=== PATIENT | male | born 1940 | race Caucasian/White ===

== ENCOUNTER 2024-05-30 10:12 | Inpatient (IN) ==
--- NOTE | 2024-05-31 12:54 | History & Physical Report ---
Date of Service May 31, 2024 Assessment & Plan Admission and Anticipated Discharge Date Admission Date: May 31, 2024 History of Present Illness Primary Care Provider: Yolanda Pope DO Allergies Allergy/AdvReac Type Severity Reaction Status Date / Time No Known Allergies Allergy Verified 05/28/24 13:18 Home Medications Medication Instructions Recorded Confirmed Type apixaban 5 mg tablet (Eliquis) 5 mg PO BID 05/01/24 05/31/24 History atorvastatin 10 mg tablet 5 mg PO HS 05/01/24 05/31/24 History metoprolol tartrate 50 mg tablet 50 mg PO QAM 05/01/24 05/31/24 History (Lopressor) multivitamin 1 tab PO DAILY 05/02/24 05/31/24 History Past Med/Surg History Problem List (Updated 05/31/24 @ 16:22 by Lorenzo Au DO) Ascites Hyponatremia Encounter for pre-operative examination Bladder tumor Mixed hearing loss, bilateral Medical History History of COVID-19 01/2023, "no real symptoms," resolved Nausea and vomiting after administration of anesthetic agent only as child when they used ether, no issues with recent procedures Hx of basal cell carcinoma History of Mohs micrographic surgery for skin cancer for BCC, f/u dermatology in [place] Mixed conductive and sensorineural hearing loss, 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 ears and deafness Social History Smoking Status: Never smoker Second Hand Exposure: No; Do You Dip or Chew Tobacco: No; Hx Alcohol Use: No Hx Substance Use: No Preferred Language: Tunisian Communication Ability: Effective Junior Java Developer Required: No Beliefs That Will Affect Care: None Current Living Situation: Spouse Feels Safe at Home: Yes Safety Concerns: Feels Safe At This Time Assistive Devices: Hearing Aid - Left Results & Data Results & Data Vital Signs (Past 12 Hours) Vital Signs Temp Pulse Pulse Resp BP Pulse Ox O2 Del Method 05/31/24 12:16 Room Air 05/31/24 12:14 98.2 F 76 12 176/97 H 95 Room Air 05/31/24 12:14 72 Code Status & VTE Plan VTE Prophylaxis Plan VTE Prophylaxis will be ordered: Yes PG Care Time/CCT Total # of Minutes Spent Total Time Spent with Patient: Total time spent is greater than 50% in coordination of care (as documented) at patient's floor/unit and/or counseling patient: Coding Level of Care Code 25596 INT INP/OBS CARE 375MIN
[2024-05-31 12:55] LABS: BUN Creatinine Ratio 8.8 (10-20); Calcium 7.7 mg/dl (8.6-10.3); Creatinine Clr Calc Pharmacy 82.5 ml/min; Potassium 4.3 mmol/L (3.5-5.1)
[2024-05-31] MEDS ORDERED: ACETAMINOPHEN 325 MG TAB PO PRN (12:56)
[2024-05-31] MEDS ORDERED: MAGNESIUM HYDROXIDE SUSP 30 ML UDC PO PRN (12:56)
[2024-05-31] MEDS ORDERED: POLYETHYLENE (MIRALAX) 17 GM PACK PO PRN (12:56)
[2024-05-31] MEDS ORDERED: ALUMINUM/MAGNESIUM SUSP 30 ML UDC PO PRN (12:56)
--- NOTE | 2024-05-31 16:14 | History & Physical Report ---
Date of Service May 31, 2024 Assessment & Plan (1) Hyponatremia: (2) Ascites: (3) History of atrial fibrillation: (4) Bladder tumor: Plan hyponatremiaetiology not entirely clear. Fortunately does not at all appear consistent with volume overload/CHF, he does have a mild degree of ascites noted on the CT abdomen pelvis, but no clear cause for this. does have mild baseline low Na on preop labs - ?some degree of reset osmostat - but acutely - ?SiADH related to all he's been through recently and bouts of urinary retention? timing raises question of association with afulzosin but not clear that this is the case. will hold for now. given that he is rising some (109 -> 115 this AM - now 112) will follow off meds/draining urine/no distress and follow w PO intake. if not rising then can consider additional salt load/additional hypertonic saline. 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 has no urinary symptoms, UA with leukocyte esterase but no nitrates at outside facilitynot clear he really needs antibiotic coveragehe has been given vancomycin at [facility], and therefore should be covered until tomorrow if coverage truly is needed, depending on the culture that they sent. I have reached out to urology, however, given that his procedure was almost a month ago I am not sure how long 1 needs to treat asymptomatic bacteriuria in the face of a mucosal urologic procedure, given that he certainly would not require treatment given his lack of symptoms/signs by more "conventional medical standards" atrial fibrillationrate controlled, anticoagulated DVT prophylaxisanticoagulated for his A-fib follow on PCUshe was transferred as an ICU patient, but given how neurologically sound he is, will have him on PCU; serial basic metabolic panels with adjustment in plan depending on the progress of his sodium. Working on determining the etiology depending on the progress of his sodium correction and how the whole story unfolds. Discussed with patient and family the anticipation that it will take at least a few days given the profoundly low sodium levels and the need for slow correction. Gave patient and family a primer on delirium in case this were to happen given his age and comorbidities. Admission and Anticipated Discharge Date Admission Date: May 31, 2024 History of Present Illness Chief Complaint: Acting confused Primary Care Provider: Yolanda Pope DO patient is a very pleasant 83-year-old male who presented to [facility] (close to home) yesterday feeling weak and shaky, acting a bit confused according to his family and having some nausea and vomitingper the ER notes he apparently had chest discomfort starting the night before describing as a heartburn intermittent has not had in the past also reports body shaking vomiting once during the night as well as some left hip and groin pain and was currently being treated for MRSA in his urine. He had no fever. Here he notes that he is feeling much better, the shakiness is gone, his mental status is much more clear although his family does note that he still a little bit easily confused. He absolutely denies any dysuria or urinary symptoms whatsoeverhe had a Leiva for quite a while and it was removed and he was voiding wellright now he has a Leiva back in and is anxious to have it removed again. No fevers chills or sweats. The nausea and vomiting seems to have resolved. He notes that up until basically Monday night or morning he was feeling okay. He had a transurethral resection of the bladder tumor done here on 05/07 and had had some issues with hematuria and urinary retention for a while thereafterwas following actively with urologynotes that he was in the ER probably 23 times over the week prior due to urinary retention issues but these had resolved and his Leiva was removed just a few days ago. Other than the nausea vomiting and poor p.o. intake over about 36 hours prior to admission, maybe not even, he denied any change in his p.o. intake/etc. He did note just being started on a few new medicationsmost notably alfuozin which he had started about a day before symptoms started. He was initially started on normal saline at [facility], they followed his sodium levels, were waiting for an ICU bed, and transferred him here. On review of records there his initial vitals on arrival were temp of 36 7 heart rate 66 respiratory rate 18 blood pressure 158/53 pulse ox 95% there he carried a diagnosis of hyponatremia and urinary tract infection, he was given saline and Bactrim, as well as hypertonic saline and vancomycin his initial labs showed a sodium of 109 and a sodium this morning of 115on arrival his sodium is 112 in between at 1:30 in the morning his sodium was 110 he had a high-sensitivity troponin of 15 (with a reference range of less than 79 and a follow-up of 16 a lactate of 1.0, TSH of 2 point2.590, CBC with a white count of 4.71, hemoglobin 10.0, platelets 220. Urinalysis was yellow cloudy trace ketones specific gravity 1.017 large amount of blood protein of 30 mg per deciliter nitrate negative large amount of leukocyte esterase urine sodium of 98 CT chest was done showing mild subsegmental atelectasis in both lower lobes, right middle lobe and lingula, 3 mm right middle lobe nodule, no pleural effusion or pneumothorax, no sign of pulmonary fibrosis or other diffuse interstitial process, no mediastinal air or axillary adenopathy, no endobronchial lesion, thoracic aorta unremarkable with no signs of aneurysm or dissection no pericardial effusion, old healed right rib fractures no focal osseous lesion; radiology recommended 6-month CT to follow-up on the pulmonary nodule. CT abdomen pelvis showed no hydronephrosis or perinephric stranding and no renal mass, small hiatal hernia no sign of bowel obstruction no free air minimal amount of ascites, no bladder mass lesionwith impression of new small amount of ascites some fluid extending into a small right inguinal hernia, moderate size left inguinal hernia containing only fat, unchanged, diverticulosis without diverticulitis, small epigastric hernia containing only fat increase in size, and constipation. EKG was sinus rhythm with some baseline artifact but no overt ischemic changes Allergies Allergy/AdvReac Type Severity Reaction Status Date / Time No Known Allergies Allergy Verified 05/28/24 13:18 Home Medications Medication Instructions Recorded Confirmed Type apixaban 5 mg tablet (Eliquis) 5 mg PO BID 05/01/24 05/31/24 History atorvastatin 10 mg tablet 5 mg PO HS 05/01/24 05/31/24 History metoprolol tartrate 50 mg tablet 50 mg PO QAM 05/01/24 05/31/24 History (Lopressor) multivitamin 1 tab PO DAILY 05/02/24 05/31/24 History Past Med/Surg History Problem List (Updated 05/31/24 @ 16:22 by Lorenzo Au DO) Ascites Hyponatremia Encounter for pre-operative examination Bladder tumor Mixed hearing loss, bilateral Medical History History of COVID-19 01/2023, "no real symptoms," resolved Nausea and vomiting after administration of anesthetic agent only as child when they used ether, no issues with recent procedures Hx of basal cell carcinoma History of Mohs micrographic surgery for skin cancer for BCC, f/u dermatology in [place], [place] Mixed conductive and sensorineural hearing loss, 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 ears and deafness Social History Smoking Status: Never smoker Second Hand Exposure: No; Do You Dip or Chew Tobacco: No; Hx Alcohol Use: No Hx Substance Use: No Preferred Language: Indonesian Communication Ability: Effective Financial Auditor Required: No Beliefs That Will Affect Care: None Current Living Situation: Spouse Feels Safe at Home: Yes Safety Concerns: Feels Safe At This Time Assistive Devices: Hearing Aid - Left Review of Systems Review of Systems: All systems reviewed & are unremarkable except as noted in HPI & below Physical Exam Physical Exam: General He is awake and alert oriented pleasant does seem to be a little bit easily confused versus just hard of hearing and anxious to provide answers. No acute distress. 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 cardio is regular without rubs murmurs or gallops, lungs are clear to auscultation bilaterally no rales rhonchi or wheezes good effort. Abdomen is soft may be mild distention but nontender no guarding no rebound no masses organomegaly. Extremities are without sinus clubbing or edema no calf tend erness. Skin shows no rashes no pallor or icterus. Neuro shows cranial nerves II through XII grossly intact gross motor and sensory intact. Mental status shows fair recent and remote recall mildly anxious mood and affect. Results & Data Results & Data Vital Signs (Past 12 Hours) Vital Signs Temp Pulse Pulse Resp BP Pulse Ox O2 Del Method 05/31/24 15:55 97.7 F 65 20 178/77 H 95 Room Air 05/31/24 15:37 98.1 F 63 16 150/90 H 96 Room Air 05/31/24 12:16 Room Air 05/31/24 12:14 98.2 F 76 12 176/97 H 95 Room Air 05/31/24 12:14 72 Code Status & VTE Plan VTE Prophylaxis Plan VTE Prophylaxis will be ordered: Yes PG Care Time/CCT Total # of Minutes Spent Total Time Spent with Patient: Total time spent is greater than 50% in coordination of care (as documented) at patient's floor/unit and/or counseling patient: Coding Level of Care Code 39833 INT INP/OBS CARE 3/75MIN Diagnoses Hyponatremia E87.1 Ascites R18.8 History of atrial fibrillation Z86.79 Bladder tumor D49.4
[2024-05-31 17:28] LABS: BUN Creatinine Ratio 8.6 (10-20); Calcium 7.8 mg/dl (8.6-10.3); Creatinine Clr Calc Pharmacy 69.3 ml/min; Potassium 4.3 mmol/L (3.5-5.1)
[2024-05-31] MEDS ORDERED: STAT IV/IM STA (17:37)
[2024-05-31] MEDS: SODIUM CHLORIDE 3 % 100 ML IV ONE (18:21)
[2024-05-31] MEDS: APIXABAN 5 MG TABLET PO SCH (21:05)
[2024-05-31] MEDS: ATORVASTATIN 10 MG TAB PO SCH (21:05)
[2024-05-31 21:30] LABS: Calcium 7.9 mg/dl (8.6-10.3); Creatinine Clr Calc Pharmacy 74.8 ml/min; Potassium 4.4 mmol/L (3.5-5.1)
[2024-05-31 23:01] LABS: Appearance Urine Clear (Clear); Bacteria Urine Automated None Seen (None Seen); Bilirubin Urine Negative (Negative); Blood Urine 1+ (Negative); Cast Urine Automated 0-2 /lpf (0-2); Color Urine Yellow; Epithelial Cell Urine Auto 0-2 /hpf (0-2); Glucose Urine UA Negative (Negative); Ketones Urine Negative (Negative); Leukocyte Esterase Urine 1+ (Negative); Nitrite Urine Negative (Negative); Protein Urine Negative (Negative); RBC Urine Automated 0-2 /hpf (0-2); Specific Gravity Urine 1.005 (1.000-1.030); Urobilinogen Urine Negative (Negative); pH Urine 6.5 (4.5-7.5)
[2024-06-01 01:56] LABS: BUN Creatinine Ratio 12.2 (10-20); Creatinine Clr Calc Pharmacy 75.9 ml/min; Potassium 4.1 mmol/L (3.5-5.1)
[2024-06-01 06:15] LABS: BUN Creatinine Ratio 11.8 (10-20); Calcium 8.5 mg/dl (8.6-10.3); Creatinine Clr Calc Pharmacy 79.5 ml/min; Potassium 4.2 mmol/L (3.5-5.1)
--- NOTE | 2024-06-01 06:25 | Communication Note ---
Date of Service: June 01, 2024 Hyponatremia- Sodium 123 at 0531 from 119. Free water deficit 1.2L Patient started on D5 500 ml bolus and DDAVP clamp 2mcg IV one dose for high risk of ove rcorrection. Will repeat NA after Bolus and desmopressin. Continue BMP Q4H
[2024-06-01] MEDS: DEXTROSE 5% 500 ML IV SCH (06:46)
[2024-06-01] MEDS: DESMOPRESSIN ACETATE 2 MCG in SODIUM CHLORIDE 0.9% 50 ML IV ONE (06:50)
--- NOTE | 2024-06-01 07:50 | Hospitalist Progress Note ---
Date of Service June 01, 2024 Assessment & Plan (1) Hyponatremia: (2) Ascites: (3) History of atrial fibrillation: (4) Bladder tumor: Plan 83 yo M with PMHx of HTN, HLD, AFib on apixaban, recent diagnosis of bladder tumor s/p transurethral resection of bladder tumor (05/07/24) presented to [facility] as direct admit from [facility] for management of hyponatremia. He initially presented for the evaluation of weakness, shakiness, and confusion, along with nausea / vomiting. Per [facility] ER notes, his initial sodium was 109 (05/29/24). He was given saline, hypertonic saline, and vancomycin. He is on bactrim as outpatient. His initial sodium trended 109 > 115 > 112 > 110. #Hyponatremia - pt not volume overloaded, TSH: 2.59 - suspect SIADH - this morning 123, subsequently pt received D5 500 cc bolus and DDAVP, now trending down to 120. - trend sodium at this time - will request nephrology to assist in further management #Recent TURBT - pt was noted to have MRSA in his urine 05/24/24 and was started on Bactrim, which he started taking on 05/25/24 and stopped on 05/28/24. When he went to ER the following day, he was placed on Vancomycin, essentially completing 5 day course. Will hold further antibiotics - murphy was initially removed by urology on 05/28/24, but was replaced on 05/29/[address] [facility] - will remove today and attempt voiding trial. #Generalized weakness - suspect due to hyponatremia - will need PT / OT eval #HTN #AFib - rate controlled - cont apixaban and metoprolol #HLD - atorvastatin DVT ppx: already on apixaban Pulmonary nodule - noted on CT chest from [facility] - follow up CT in 6 months (11/2024) 06/01/24: pt's at bedside Admission and Anticipated Discharge Date Admission Date: May 31, 2024 Results & Data Results & Data Vital Signs (Past 12 Hours) Vital Signs Temp Pulse Pulse Resp BP Pulse Ox O2 Del Method 06/01/24 03:24 36.6 C 73 18 150/96 H 95 Room Air 06/01/24 00:00 64 05/31/24 23:45 36.7 C 63 18 137/66 96 Room Air PG Care Time/CCT Total # of Minutes Spent Total Time Spent with Patient: Total time spent is greater than 50% in coordination of care (as documented) at patient's floor/unit and/or counseling patient: Coding Level of Care Code 59519 SUB INP/OBS CARE 2/35MIN Diagnoses Hyponatremia E87.1 Ascites R18.8 History of atrial fibrillation Z86.79 Bladder tumor D49.4
[2024-06-01] MEDS: METOPROLOL TARTRATE 50 MG TAB PO SCH (09:06)
[2024-06-01] MEDS: MULTIVITAMIN TAB PO SCH (09:06)
[2024-06-01 09:38] LABS: BUN Creatinine Ratio 11.1 (10-20); Calcium 8.3 mg/dl (8.6-10.3); Creatinine Clr Calc Pharmacy 75.1 ml/min
[2024-06-01 11:52] LABS: BUN Creatinine Ratio 13.6 (10-20); Calcium 8.1 mg/dl (8.6-10.3); Creatinine Clr Calc Pharmacy 81.9 ml/min; Potassium 4.2 mmol/L (3.5-5.1)
--- NOTE | 2024-06-01 12:41 | Nephrology Consultation ---
Date of Consultation June 01, 2024 Assessment & Plan (1) Hyponatremia: (2) Bladder tumor: (3) HTN (hypertension): Plan 83-year-old gentleman with past medical history of bladder tumor resection, A- fib on anticoagulation, recent mild hyponatremia, admitted to the hospital with acute hyponatremia, serum sodium initially was 112, received hypertonic saline and sodium rapidly improved to 123 this morning. Received DDAVP earlier this morning and repeat serum sodium was 120. Urine osmolality was 121 and urine sodium 31. No history of hypothyroidism or adrenal insufficiency. Recent diagnosis of bladder tumor s/p resection but pathology was negative for malignancy. --Continue to monitor serum sodium every 6 hours --Fluid restriction to less than 15 mL mL per hour --U osm in am --discontinue murphy catheter, monitor for voiding --physical therapy as able --considering new ascites, will check liver function with am lab --If blood pressure remain elevated, will consider adding low-dose loop diuretic but hold for now considering some lightheadedness earlier Thank you for allowing me to participate in your patient's care. It was a pleasure to see Mr. Wilburn History of Present Illness Reason for Consultation: Hyponatremia Attending Physician: Ольга Morris MD History of Present Illness Mr. Miko Wilburn is a 83-year-old male with past medical history of bladder tumor resection, A-fib on anticoagulation, recent mild hyponatremia, admitted to the hospital with acute hyponatremia. Nephrology consult was requested for management of acute hyponatremia. EMR records were reviewed in detail during patient's visit. was at bedside. Miko presented to ER on 05/31/24 with feeling of weakness, some shaking and family concern for confusion. He denied any fever, chills, dysuria or hematuria. Had 1 episode of of nausea and vomiting 2 days ago which seem to have resolved and has been having decent p.o. intake. He has been drinking more fluid due to recent bladder surgery and hematuria. Lab on admission was notable for acute hyponatremia, serum sodium was 112. Recent lab in early April 2024 prior to bladder tumor resection showed mild hyponatremia with serum sodium 127 which eventually slightly improved. Initially he received 3% saline but overnight serum sodium corrected rapidly to 123 early this morning. He was given a dose of DDAVP and repeat sodium later in the morning was down to 120. Urine osmolality yesterday was 121 and urine sodium 31. TSH was 2.5. Hemoglobin 10.0, platelet 220 and WBC 4.7. Urinalysis showed low-grade proteinuria and microscopic hematuria. CT chest otherwise unremarkable. CT A/P at outside facility was unremarkable except mild ascites, no other abnormalities. Has normal kidney function, baseline creatinine 0.8-0.9 mg/dl. Blood pressure was stable and otherwise vital signs were normal. Never smoker. Recent diagnosis of bladder tumor s/p TURBT on 05/07/2024 but pathology showed no cancer. He had Murphy catheter and had gross hematuria now catheter was removed and hematuria resolved as well. Recently he was started on alfuozin. Previously was on apixaban and metoprolol for A-fib, apixaban currently on hold. Last serum sodium was 120. He reports otherwise feeling well but noticed some lightheadedness this morning walking to and from commode but feeling well now. Blood pressure has been variable but generally high. Allergies Allergy/AdvReac Type Severity Reaction Status Date / Time No Known Allergies Allergy Verified 05/28/24 13:18 Home Medications Medication Instructions Recorded Confirmed Type apixaban 5 mg tablet (Eliquis) 5 mg PO BID 05/01/24 05/31/24 History atorvastatin 10 mg tablet 5 mg PO HS 05/01/24 05/31/24 History metoprolol tartrate 50 mg tablet 50 mg PO QAM 05/01/24 05/31/24 History (Lopressor) multivitamin 1 tab PO DAILY 05/02/24 05/31/24 History Patient History Medical History History of COVID-19 01/2023, "no real symptoms," resolved Nausea and vomiting after administration of anesthetic agent only as child when they used ether, no issues with recent procedures Hx of basal cell carcinoma History of Mohs micrographic surgery for skin cancer for BCC, f/[place] dermatology in [place] Mixed conductive and sensorineural hearing loss, 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 ears and deafness Social History Smoking Status: Never smoker Second Hand Exposure: No; Do You Dip or Chew Tobacco: No; Hx Alcohol Use: No Hx Substance Use: No Preferred Language: Upper Sorbian Communication Ability: Effective Soloist Dancer Required: No Beliefs That Will Affect Care: None Current Living Situation: Spouse Feels Safe at Home: Yes Safety Concerns: Feels Safe At This Time Assistive Devices: Hearing Aid - Left Review of Systems Review of Systems: All systems reviewed & are unremarkable except as noted in HPI & below Physical Exam Constitutional: WD/WN, vitals as above no acute distress Eyes: + anicteric sclerae Neck: normal visual inspection Respiratory: no respiratory distress and no cough Auscultation: lungs clear to auscultation bilaterally Cardiovascular: Rate/Rhythm: regular rate and regular rhythm Heart Sounds: normal S1 and normal S2 Extremities: no edema Gastrointestinal (Abdomen): Inspection/Auscultation: abdomen normal to inspection Percussion/Palpation: abdomen soft; abdomen nontender Musculoskeletal: Extremities: extremities normal to inspection Neurologic: no focal motor deficits and not confused Psychiatric: Orientation: alert and oriented x 3 Affect: euthymic affect Results & Data Vital Signs (Past 12 Hours) Vital Signs Temp Pulse Pulse Resp BP Pulse Ox O2 Del Method 06/01/24 11:36 36.7 C 65 17 155/69 H 95 Room Air 06/01/24 08:17 36.7 C 65 18 169/64 H 97 Room Air 06/01/24 08:00 73 06/01/24 03:24 36.6 C 73 18 150/96 H 95 Room Air PG Care Time/CCT Total # of Minutes Spent Total Time Spent with Patient: Total time spent is greater than 50% in coordination of care (as documented) at patient's floor/unit and/or counseling patient: Coding Level of Care Code 42513 INT INP/OBS CARE 3/75MIN Diagnoses Hyponatremia E87.1 Bladder tumor D49.4 HTN (hypertension) I10
[2024-06-01 13:44] LABS: Albumin Level 3.5 gm/dl (3.4-5.0); BUN Creatinine Ratio 15.2 (10-20); Calcium 8.3 mg/dl (8.6-10.3); Creatinine Clr Calc Pharmacy 81.9 ml/min; Phosphorus 2.5 mg/dl (2.5-4.9); Potassium 4.1 mmol/L (3.5-5.1)
[2024-06-01 13:45] LABS: BUN Creatinine Ratio 14.5 (10-20); Calcium 8.3 mg/dl (8.6-10.3); Creatinine Clr Calc Pharmacy 78.4 ml/min; Potassium 4.2 mmol/L (3.5-5.1)
[2024-06-01 18:16] LABS: BUN Creatinine Ratio 14.6 (10-20); Calcium 8.3 mg/dl (8.6-10.3); Creatinine Clr Calc Pharmacy 65.9 ml/min; Potassium 4.6 mmol/L (3.5-5.1)
[2024-06-01] MEDS: SODIUM CHLORIDE 1 GM TABLET PO SCH (20:33)
[2024-06-01] MEDS ORDERED: SODIUM CHLORIDE 1 GM TABLET PO SCH (21:00)
[2024-06-01 22:01] LABS: BUN Creatinine Ratio 15.9 (10-20); Calcium 8.1 mg/dl (8.6-10.3); Creatinine Clr Calc Pharmacy 65.9 ml/min; Potassium 4.1 mmol/L (3.5-5.1)
[2024-06-02 01:29] LABS: BUN Creatinine Ratio 18.4 (10-20); Calcium 7.9 mg/dl (8.6-10.3); Creatinine Clr Calc Pharmacy 71.1 ml/min
[2024-06-02 06:22] LABS: Hematocrit (blood only) 28.4 % (42.0-52.0); Hemoglobin 10.3 g/dl (14.0-18.0); Mean Corpuscular Hemoglobin 31.9 pg (25.0-34.0); Mean Corpuscular Hgb Conc 36.3 g/dL (32.0-36.0); Mean Corpuscular Volume 87.9 fL (80.0-100.0); Mean Platelet Volume 8.3 fL (9.4-12.4); Platelet Count 255 K/uL (130-400); RDW Coefficient of Variation 11.2 % (11.5-14.5); RDW Standard Deviation 36.2 fL (36.4-46.3); Red Blood Count 3.23 M/uL (4.70-6.10); White Blood Count 6.93 K/ul (4.8-10.8)
[2024-06-02 06:30] LABS: Albumin Globulin Ratio 1.5 (0.9-2); Albumin Level 3.3 gm/dl (3.4-5.0); BUN Creatinine Ratio 17.5 (10-20); Bilirubin,Total 0.4 mg/dl (0.2-1.0); Calcium 8.1 mg/dl (8.6-10.3); Creatinine Clr Calc Pharmacy 86.6 ml/min; Globulin 2.2 gm/dl (2.5-4.0); Magnesium 1.6 mg/dl (1.7-2.4); Phosphorus 2.5 mg/dl (2.5-4.9); Potassium 4.1 mmol/L (3.5-5.1); Total Protein 5.5 gm/dl (6.0-8.3)
--- NOTE | 2024-06-02 07:33 | Hospitalist Progress Note ---
Date of Service June 02, 2024 Assessment & Plan (1) Hyponatremia: (2) Ascites: (3) History of atrial fibrillation: (4) Bladder tumor: Plan 83 yo M with PMHx of HTN, HLD, AFib on apixaban, recent diagnosis of bladder tumor s/p transurethral resection of bladder tumor (05/07/24) presented to [facility] as direct admit from [facility] for management of hyponatremia. He initially presented for the evaluation of weakness, shakiness, and confusion, along with nausea / vomiting. Per [facility] ER notes, his initial sodium was 109 (05/29/24). He was given saline, hypertonic saline, and vancomycin. He is on bactrim as outpatient. His initial sodium trended 109 > 115 > 112 > 110. #Hyponatremia - suspect SIADH - pt not volume overloaded (though pt did have some mild ascites on CT abd), TSH: 2.59 - pt has received saline / hypertonic saline (OSH), DDAVP / D5 (here due to over correction) - currently on 1500ml fluid restriction - nephrology on board, per recs initiated NaCl 1g PO BID, added furosemide 20mg po daily - Na this AM 121, trend q6h #Recent TURBT - path (05/07/24): polypoid cystitis, acutely inflamed cystitis glandularis, neg for malignancy - pt was noted to have MRSA in his urine 05/24/24 and was started on Bactrim, which he started taking on 05/25/24 and stopped on 05/28/24. When he went to ER the following day, he was placed on Vancomycin, essentially completing 5 day course. Will hold further antibiotics (urology made aware) - murphy was initially removed by urology on 05/28/24, but was replaced on 05/29/24 in the ED at OSH, removed on 06/01/24 #Generalized weakness - gradually improving - suspect due to hyponatremia - PT / OT recs return home #Ascites - LFTs normal - requested records from OSH - pt is not having any abdominal discomfort, repeat imaging in about 1 - 2 week as outpatient #HTN #AFib - rate controlled - cont apixaban and metoprolol #HLD - atorvastatin DVT ppx: already on apixaban Pulmonary nodule - noted on CT chest from [facility] - follow up CT in 6 months (11/2024) 06/01/24: pt's at bedside 06/02/24: pt's at bedside Admission and Anticipated Discharge Date Admission Date: May 31, 2024 Subjective No acute events overnight Murphy removed yesterday Currently complaining of some constipation Review of Systems Review of Systems: Comprehensive ROS neg Physical Exam Physical Exam: Gen: elderly gentleman, sitting in bedside chair HEENT: NC/AT, anicteric, cochlear implants in place Lungs: CTAB CVS: s1s2 nl, RRR Abd: soft, nl bowel sounds : no murphy Ext: no edema Neuro: awake and alert, communicating appropriately Results & Data Results & Data Vital Signs (Past 12 Hours) Vital Signs Temp Pulse Pulse Resp BP Pulse Ox O2 Del Method 06/02/24 07:13 59 L 06/02/24 03:37 36.6 C 64 16 160/73 H 96 Room Air 06/01/24 23:17 36.5 C 97 H 17 127/62 98 Room Air 06/01/24 22:17 61 06/01/24 19:51 36.7 C 62 19 172/82 H 97 Room Air PG Care Time/CCT Total # of Minutes Spent Total Time Spent with Patient: Total time spent is greater than 50% in coordination of care (as documented) at patient's floor/unit and/or counseling patient: Coding Level of Care Code 59835 SUB INP/OBS CARE 2/35MIN Diagnoses Hyponatremia E87.1 Ascites R18.8 History of atrial fibrillation Z86.79 Bladder tumor D49.4
[2024-06-02] MEDS: FUROSEMIDE 20 MG TAB PO SCH (10:54)
--- NOTE | 2024-06-02 11:07 | Nephrology Progress Note ---
Date of Service June 02, 2024 Assessment & Plan (1) Hyponatremia: (2) Bladder tumor: (3) HTN (hypertension): Plan 83-year-old gentleman with past medical history of bladder tumor resection, A- fib on anticoagulation, recent mild hyponatremia, admitted to the hospital with acute hyponatremia, serum sodium initially was 112, received hypertonic saline and sodium rapidly improved to 123 this morning. Received DDAVP earlier this morning and repeat serum sodium was 120. Urine osmolality was 121 and urine sodium 31. No history of hypothyroidism or adrenal insufficiency. Recent diagnosis of bladder tumor s/p resection but pathology was negative for malignancy. Outside hospital CT abdomen pelvis with contrast done on 05/30/2024 was unremarkable except there is a minimal amount of ascites fluid, no liver pathology or pancreatic pathology or intra-abdominal lymphadenopathy. History of gallbladder resection before. Kidneys were otherwise unremarkable. LFTs are unremarkable this morning. --Start on Lasix 20 mg daily, continue sodium chloride 1 g twice a day, continue to monitor serum sodium every 6 hours --Fluid restriction to less than 1500 mL per/d --physical therapy as able, consider short-term rehab on discharge Admission and Anticipated Discharge Date Admission Date: May 31, 2024 Thomas Crouch was seen and evaluated this morning with his at bedside. His main concern is still feeling quite wobbly and unstable when he works, yesterday he worked with physical therapy and felt unstable on his feet but no dizziness or lightheadedness. Blood pressure remain elevated. Sodium dropped again to 119 yesterday afternoon but now slowly increasing, 121 this morning. Urine osmolality yesterday above 500 possibly some effect from the DDAVP he received yesterday. Other electrolyte acceptable. Drop in hemoglobin noted. Has been voiding normally after Leiva catheter removed yesterday, no gross hematuria. Review of Systems Review of Systems: Detailed review of system was done and pertinent positives and negatives are mentioned above. Physical Exam Constitutional: WD/WN, vitals as above no acute distress Eyes: + anicteric sclerae Respiratory: no respiratory distress and no cough Auscultation: lungs clear to auscultation bilaterally Gastrointestinal (Abdomen): Inspection/Auscultation: abdomen normal to inspection Percussion/Palpation: abdomen soft; abdomen nontender Musculoskeletal: Extremities: extremities normal to inspection Neurologic: no focal motor deficits and not confused Psychiatric: Orientation: alert and oriented x 3 Affect: euthymic affect Results & Data Vital Signs (Past 12 Hours) Vital Signs Temp Pulse Pulse Resp BP Pulse Ox O2 Del Method 06/02/24 08:14 36.7 C 65 18 169/78 H 95 Room Air 06/02/24 07:13 59 L 06/02/24 03:37 36.6 C 64 16 160/73 H 96 Room Air 06/01/24 23:17 36.5 C 97 H 17 127/62 98 Room Air PG Care Time/CCT Total # of Minutes Spent Total Time Spent with Patient: Total time spent is greater than 50% in coordination of care (as documented) at patient's floor/unit and/or counseling patient: Coding Level of Care Code 59641 SUB INP/OBS CARE 2/35MIN Diagnoses Hyponatremia E87.1 Bladder tumor D49.4 HTN (hypertension) I10
[2024-06-02 13:32] LABS: BUN Creatinine Ratio 16.4 (10-20); Calcium 8.4 mg/dl (8.6-10.3); Creatinine Clr Calc Pharmacy 81.4 ml/min; Potassium 3.9 mmol/L (3.5-5.1)
[2024-06-02] MEDS: DOCUSATE SODIUM/SENNA 50/8.6MG TAB PO SCH (15:22)
[2024-06-02 18:30] LABS: BUN Creatinine Ratio 13.9 (10-20); Calcium 8.6 mg/dl (8.6-10.3); Potassium 4.1 mmol/L (3.5-5.1)
[2024-06-02] MEDS: MAGNESIUM OXIDE 400 MG TAB PO SCH (20:16)
[2024-06-03 01:00] LABS: Calcium 8.2 mg/dl (8.6-10.3); Potassium 3.7 mmol/L (3.5-5.1)
[2024-06-03 06:21] LABS: Hematocrit (blood only) 30.3 % (42.0-52.0); Mean Corpuscular Hemoglobin 31.7 pg (25.0-34.0); Mean Corpuscular Hgb Conc 36.3 g/dL (32.0-36.0); Mean Corpuscular Volume 87.3 fL (80.0-100.0); Platelet Count 275 K/uL (130-400); RDW Coefficient of Variation 11.5 % (11.5-14.5); RDW Standard Deviation 36.8 fL (36.4-46.3); Red Blood Count 3.47 M/uL (4.70-6.10); White Blood Count 6.72 K/ul (4.8-10.8)
[2024-06-03 06:36] LABS: BUN Creatinine Ratio 19.7 (10-20); Calcium 8.5 mg/dl (8.6-10.3); Creatinine Clr Calc Pharmacy 82.6 ml/min; Magnesium 1.7 mg/dl (1.7-2.4); Phosphorus 3.1 mg/dl (2.5-4.9); Potassium 3.8 mmol/L (3.5-5.1)
[2024-06-03] MEDS: ONDANSETRON INJ 2 MG/ML 2 ML VIAL IV PRN (09:00)
--- NOTE | 2024-06-03 09:39 | Nephrology Progress Note ---
Date of Service June 03, 2024 Assessment & Plan (1) Hyponatremia: Plan: Chronic. No current symptoms. Sodium is improving at acceptable rate following DDAVP provided yesterday AM. Volume status appears relatively euvolemic. Clinical presentation suggestive of hypotonic hypovolemic vs SIADH. Maintain 1.5 L daily fluid limit. Remains on furosemide 20 mg QAM and oral NaCl 1 gram BID. Urine osmolality requested this AM. Document orthostatic vitals x 1. Repeat serum sodium scheduled for this afternoon. Document strict I/O's. (2) Bladder tumor: Plan: Urine clear this AM. No acute urinary symptoms. (3) HTN (hypertension): Plan: BP acceptable. No additional therapy required. Noted history of 'white coat hypertension.' Document orthostatic vitals. Admission and Anticipated Discharge Date Admission Date: May 31, 2024 Subjective No acute events overnight. Miko was seen and evaluated with his daughter at the bedside this AM. Overall, he feels well. Urine output increased overnight. Urine is clear and dilute. No hematuria. No urinary complaints this AM. Miko denies fluid retention or edema. Appetite is good. Some orthostatic lightheadedness persists. Review of Systems Review of Systems: All systems reviewed & are unremarkable except as noted in HPI & below Physical Exam Constitutional: + thin; no acute distress and not ill ap pearing Eyes: + anicteric sclerae ENMT: Mouth: + dry oral mucous membranes (slightly) Neck: normal visual inspection and trachea midline Respiratory: normal respiratory effort; no labored breathing Cardiovascular: Rate/Rhythm: regular rate and regular rhythm Heart Sounds: normal S1 and normal S2 Extremities: no edema Musculoskeletal: Extremities: no cyanosis Skin: normal turgor; no jaundice Neurologic: Motor/Sensory: no tremor and no asterixis Psychiatric: Orientation: alert and oriented x 3 Results & Data Vital Signs (Past 12 Hours) Vital Signs Temp Pulse Pulse Resp BP Pulse Ox O2 Del Method 06/03/24 07:55 36.7 C 67 18 157/81 H 97 Room Air 06/03/24 07:51 56 L 06/03/24 03:26 36.5 C 62 17 157/78 H 96 Room Air 06/02/24 23:04 36.7 C 64 17 159/75 H 98 Room Air 06/02/24 22:01 62 Laboratory Results Laboratory Results - last 24 hr 04/08/2106/02/24 06/02/24 12:06 12:57 18:05 WBC RBC Hgb Hct MCV MCH MCHC RDW Std Deviation RDW Coeff of [place] Plt Count MPV Sodium Cancelled 121 L 121 L Potassium Cancelled 3.9 4.1 Chloride Cancelled 88 L 87 L Carbon Dioxide Cancelled 28 30 Anion Gap Cancelled 5 4 BUN Cancelled 11 11 Creatinine Cancelled 0.67 0.79 Est Cr Clr Drug Dosing Cancelled 81.4 69.0 eGFR Cancelled 92.64 88.15 BUN/Creatinine Ratio Cancelled 16.4 13.9 Glucose Cancelled 118 H 94 Calcium Cancelled 8.4 L 8.6 Phosphorus Magnesium 06/03/24 06/03/24 00:24 05:37 WBC 6.72 RBC 3.47 L Hgb 11.0 L Hct 30.3 L MCV 87.3 MCH 31.7 MCHC 36.3 H RDW Std Deviation 36.8 RDW Coeff of [place] 11.5 Plt Count 275 MPV 8.0 L Sodium 122 L 124 L Potassium 3.7 3.8 Chloride 90 L 91 L Carbon Dioxide 30 28 Anion Gap 2 L 5 BUN 15 13 Creatinine 0.79 0.66 Est Cr Clr Drug Dosing 69.0 82.6 eGFR 88.15 93.06 BUN/Creatinine Ratio 19.0 19.7 Glucose 105 H 92 Calcium 8.2 L 8.5 L Phosphorus 3.1 Magnesium 1.7 PG Care Time/CCT Total # of Minutes Spent Total Time Spent with Patient: Total time spent is greater than 50% in coordination of care (as documented) at patient's floor/unit and/or counseling patient: Coding Level of Care Code 41299 SUB INP/OBS CARE 3/50MIN Diagnoses Hyponatremia E87.1 Bladder tumor D49.4 HTN (hypertension) I10
--- NOTE | 2024-06-03 13:58 | Hospitalist Progress Note ---
Date of Service June 03, 2024 Assessment & Plan (1) Hyponatremia: (2) Ascites: (3) History of atrial fibrillation: (4) Bladder tumor: Plan 83 yo M with PMHx of HTN, HLD, AFib on apixaban, recent diagnosis of bladder tumor s/p transurethral resection of bladder tumor (05/07/24) presented to [facility] as direct admit from [facility] for management of hyponatremia. He initially presented for the evaluation of weakness, shakiness, and confusion, along with nausea / vomiting. Per [facility] ER notes, his initial sodium was 109 (05/29/24). He was given saline, hypertonic saline, and vancomycin. He is on bactrim as outpatient. His initial sodium trended 109 > 115 > 112 > 110. #Severe symptomatic hyponatremia - suspect SIADH - pt not volume overloaded (though pt did have some mild ascites on CT abd), TSH: 2.59 - pt has received saline / hypertonic saline (OSH), DDAVP / D5 (here due to over correction) - currently on 1500ml fluid restriction - cont NaCl 1g PO BID, furosemide 20mg po daily - reviewed recs in nephrology note - symptoms resolved - Na this AM 124 good rate of correction, check afternoon Na and again in AM. afternoon labs - appropriate rate of improvement to 126 - close monitoring of labs with PCP / home health? at discharge #Recent TURBT - path (05/07/24): polypoid cystitis, acutely inflamed cystitis glandularis, neg for malignancy - pt was noted to have MRSA in his urine 05/24/24 and was started on Bactrim, which he started taking on 05/25/24 and stopped on 05/28/24. When he went to ER the following day, he was placed on Vancomycin, essentially completing 5 day course. Will hold further antibiotics (urology made aware) - murphy was initially removed by urology on 05/28/24, but was replaced on 05/29/24 in the ED at OSH, removed on 06/01/24 #Generalized weakness - improving, now walking frequently with walker - due to hyponatremia - PT / OT recs return home #Ascites - LFTs normal - requested records from OSH - pt is not having any abdominal discomfort, repeat imaging in about 1 - 2 week as outpatient #HTN #AFib - rate controlled - cont apixaban and metoprolol #HLD - atorvastatin DVT ppx: already on apixaban Pulmonary nodule - noted on CT chest from [facility] - follow up CT in 6 months (11/2024) 06/03/24: I updated his daughter at bedside Admission and Anticipated Discharge Date Admission Date: May 31, 2024 Thomas Crouch is really feeling well and has been doing laps in the hallway with the walker Doesnt normally use at home, has 3ste otherwise on one level Mild lightheadedness standing up but much improved, no nausea confusion or malaise Physical Exam 2 Physical Exam: Last 24h vitals reviewed GEN: no acute distress, sitting in bed HEENT: pupils equal, sclerae anicteric, moist MM, hearing aid RESP: normal WOB CV: reg no mrg ABD: soft/nd : no murphy SKIN: warm and dry, no generalized rashes, no leg edema NEURO: AOx person, place, and situation. Face symmetric, speech normal, moves 4 ext spontaneously and equally Results & Data Results & Data Vital Signs (Past 12 Hours) Vital Signs Temp Pulse Pulse Resp BP Pulse Ox O2 Del Method 06/03/24 12:01 36.7 C 58 L 18 165/80 H 98 Room Air 06/03/24 09:52 Room Air 06/03/24 07:55 36.7 C 67 18 157/81 H 97 Room Air 06/03/24 07:51 56 L 06/03/24 03:26 36.5 C 62 17 157/78 H 96 Room Air Laboratory Results 06/03/24 05:37 06/03/24 14:35 PG Care Time/CCT Total # of Minutes Spent Total Time Spent with Patient: Total time spent is greater than 50% in coordination of care (as documented) at patient's floor/unit and/or counseling patient: Coding Level of Care Code 06442 SUB INP/OBS CARE 2/35MIN Diagnoses Hyponatremia E87.1 Ascites R18.8 History of atrial fibrillation Z86.79 Bladder tumor D49.4
[2024-06-03] MEDS: SODIUM CHLORIDE 1 GM TABLET PO SCH (17:43)
--- NOTE | 2024-06-03 17:55 | Hospitalist Progress Note ---
Date of Service June 03, 2024 Assessment & Plan (1) Hyponatremia: (2) Ascites: (3) History of atrial fibrillation: (4) Bladder tumor: Plan 83 yo M with PMHx of HTN, HLD, AFib on apixaban, recent diagnosis of bladder tumor s/p transurethral resection of bladder tumor (05/07/24) presented to [facility] as direct admit from [facility] for management of hyponatremia. He initially presented for the evaluation of weakness, shakiness, and confusion, along with nausea / vomiting. Per [facility] ER notes, his initial sodium was 109 (05/29/24). He was given saline, hypertonic saline, and vancomycin. He is on bactrim as outpatient. His initial sodium trended 109 > 115 > 112 > 110. #Severe symptomatic hyponatremia #Acute metabolic encephalopathy due to hyponatremia present on admission, resolved - suspect SIADH - pt not volume overloaded (though pt did have some mild ascites on CT abd), TSH: 2.59 - pt has received saline / hypertonic saline (OSH), DDAVP / D5 (here due to over correction) - currently on 1500ml fluid restriction - cont NaCl 1g PO BID, furosemide 20mg po daily - reviewed recs in nephrology note - symptoms resolved - Na this AM 124 good rate of correction, check afternoon Na and again in AM. afternoon labs - appropriate rate of improvement to 126 - close monitoring of labs with PCP / home health? at discharge #Recent TURBT - path (05/07/24): polypoid cystitis, acutely inflamed cystitis glandularis, neg for malignancy - pt was noted to have MRSA in his urine 05/24/24 and was started on Bactrim, which he started taking on 05/25/24 and stopped on 05/28/24. When he went to ER the following day, he was placed on Vancomycin, essentially completing 5 day course. Will hold further antibiotics (urology made aware) - murphy was initially removed by urology on 05/28/24, but was replaced on 05/29/24 in the ED at OSH, removed on 06/01/24 #Generalized weakness - improving, now walking frequently with walker - due to hyponatremia - PT / OT recs return home #Ascites - LFTs normal - requested records from OSH - pt is not having any abdominal discomfort, repeat imaging in about 1 - 2 week as outpatient #HTN #AFib - rate controlled - cont apixaban and metoprolol #HLD - atorvastatin DVT ppx: already on apixaban Pulmonary nodule - noted on CT chest from [facility] - follow up CT in 6 months (11/2024) 06/03/24: I updated his daughter at bedside Admission and Anticipated Discharge Date Admission Date: May 31, 2024 Results & Data Results & Data Vital Signs (Past 12 Hours) Vital Signs Temp Pulse Pulse Resp BP Pulse Ox O2 Del Method 06/03/24 16:15 36.7 C 67 18 137/75 97 Room Air 06/03/24 14:15 54 L 06/03/24 12:01 36.7 C 58 L 18 165/80 H 98 Room Air 06/03/24 09:52 Room Air 06/03/24 07:55 36.7 C 67 18 157/81 H 97 Room Air 06/03/24 07:51 56 L PG Care Time/CCT Total # of Minutes Spent Total Time Spent with Patient: Total time spent is greater than 50% in coordination of care (as documented) at patient's floor/unit and/or counseling patient: Coding Level of Care Code None Diagnoses Hyponatremia E87.1 Ascites R18.8 History of atrial fibrillation Z86.79 Bladder tumor D49.4
[2024-06-04 06:39] LABS: Albumin Level 3.7 gm/dl (3.4-5.0); BUN Creatinine Ratio 20.7 (10-20); Calcium 9.1 mg/dl (8.6-10.3); Creatinine Clr Calc Pharmacy 63.3 ml/min; Phosphorus 3.8 mg/dl (2.5-4.9); Potassium 4.2 mmol/L (3.5-5.1)
--- NOTE | 2024-06-04 11:24 | Nephrology Progress Note ---
Date of Service June 04, 2024 Assessment & Plan (1) Hyponatremia: Plan: Chronic. No current symptoms. Sodium is improving at acceptable rate. Volume status appears relatively euvolemic. Clinical presentation suggestive of hypotonic hypovolemic vs SIADH. Maintain 1.5 L daily fluid limit. Continue oral NaCl 1 gram BID. Additional dose of furosemide provided this AM. Will hold diuretics tomorrow. Document orthostatic vitals daily. Repeat serum sodium scheduled for this afternoon. Document strict I/O's. (2) Bladder tumor: Plan: Urine remains clear. No acute urinary symptoms. (3) HTN (hypertension): Plan: BP acceptable. No additional therapy required. Noted history of 'white coat hypertension.' Document orthostatic vitals. Admission and Anticipated Discharge Date Admission Date: May 31, 2024 Subjective No acute events overnight. Miko was seen and evaluated with his at the bedside. Some orthostatic lightheadedness persists. He otherwise feels well overall. Appetite is good. No fluid retention or edema. Review of Systems Review of Systems: All systems reviewed & are unremarkable except as noted in HPI & below Physical Exam Constitutional: + thin; no acute distress and not ill ap pearing Eyes: + anicteric sclerae ENMT: Mouth: + dry oral mucous membranes (slightly) Neck: normal visual inspection and trachea midline Respiratory: normal respiratory effort; no labored breathing Cardiovascular: Rate/Rhythm: regular rate and regular rhythm Heart Sounds: normal S1 and normal S2 Extremities: no edema Musculoskeletal: Extremities: no cyanosis Skin: normal turgor; no jaundice Neurologic: Motor/Sensory: no tremor and no asterixis Psychiatric: Orientation: alert and oriented x 3 Results & Data Vital Signs (Past 12 Hours) Vital Signs Temp Pulse Resp BP Pulse Ox O2 Del Method 06/04/24 08:00 36.7 C 67 18 161/76 H 97 Room Air Laboratory Results Laboratory Results - last 24 hr 06/03/24 06/04/24 14:35 05:42 Sodium 126 L 128 L Potassium 4.2 Chloride 93 L Carbon Dioxide 29 Anion Gap 6 BUN 17 Creatinine 0.82 Est Cr Clr Drug Dosing 63.3 eGFR 87.16 BUN/Creatinine Ratio 20.7 H Glucose 90 Calcium 9.1 Phosphorus 3.8 Albumin 3.7 PG Care Time/CCT Total # of Minutes Spent Total Time Spent with Patient: Total time spent is greater than 50% in coordination of care (as documented) at patient's floor/unit and/or counseling patient: Coding Level of Care Code 70773 SUB INP/OBS CARE MIN Diagnoses Hyponatremia E87.1 Bladder tumor D49.4 HTN (hypertension) I10
[2024-06-04] MEDS ORDERED: STAT IV/IM STA ×2 (16:40→23:28)
[2024-06-04] MEDS: SODIUM CHLORIDE 1 GM TABLET PO SCH (16:52)
[2024-06-04] MEDS: SODIUM CHLORIDE 3 % 100 ML IV ONE ×2 (16:53→23:42)
--- NOTE | 2024-06-04 22:52 | Hospitalist Progress Note ---
Date of Service June 04, 2024 Assessment & Plan (1) Hyponatremia: (2) Ascites: (3) History of atrial fibrillation: (4) Bladder tumor: Plan 83 yo M with PMHx of HTN, HLD, AFib on apixaban, recent diagnosis of bladder tumor s/p transurethral resection of bladder tumor (05/07/24) presented to [facility] as direct admit from [facility] for management of hyponatremia. He initially presented for the evaluation of weakness, shakiness, and confusion, along with nausea / vomiting. Per [facility] ER notes, his initial sodium was 109 (05/29/24). He was given saline, hypertonic saline, and vancomycin. He is on bactrim as outpatient. His initial sodium trended 109 > 115 > 112 > 110. #Severe symptomatic hyponatremia #Acute metabolic encephalopathy due to hyponatremia present on admission, resolved - suspect SIADH - pt not volume overloaded (though pt did have some mild ascites on CT abd), TSH: 2.59 - pt has received saline / hypertonic saline (OSH), DDAVP / D5 (here due to over correction) - currently on 1500ml fluid restriction - increased NaCl 2g PO BID, conitnuesd furosemide 20mg po daily - reviewed recs in nephrology note - symptoms resolved - still sodium is at 128 slightly improved. afternoon labs - - close monitoring of labs with PCP / home health? at discharge #Recent TURBT - path (05/07/24): polypoid cystitis, acutely inflamed cystitis glandularis, neg for malignancy - pt was noted to have MRSA in his urine 05/24/24 and was started on Bactrim, which he started taking on 05/25/24 and stopped on 05/28/24. When he went to ER the following day, he was placed on Vancomycin, essentially completing 5 day course. Will hold further antibiotics (urology made aware) - murphy was initially removed by urology on 05/28/24, but was replaced on 05/29/24 in the ED at OSH, removed on 06/01/24 #Generalized weakness - improving, now walking frequently with walker - due to hyponatremia - PT / OT recs return home #Ascites - LFTs normal - requested records from OSH - pt is not having any abdominal discomfort, repeat imaging in about 1 - 2 week as outpatient #HTN #AFib - rate controlled - cont apixaban and metoprolol #HLD - atorvastatin DVT ppx: already on apixaban Pulmonary nodule - noted on CT chest from [facility] - follow up CT in 6 months (11/2024) Admission and Anticipated Discharge Date Admission Date: May 31, 2024 Subjective 83 yo male reports no new symptoms. Review of Systems Review of Systems: All systems reviewed & are unremarkable except as noted in HPI & below Physical Exam Constitutional: WD/WN, vitals as above Neck: trachea midline, no thyromegaly Respiratory: normal respiratory effort, lungs clear to auscultation Cardiovascular: RRR, no murmur, no edema Gastrointestinal (Abdomen): normal bowel sounds, soft, nontender, no hepatosplenomegaly Neurologic: PERRL, EOMI, accommodation nl, no face palsy, no dysarthria Results & Data Results & Data Vital Signs (Past 12 Hours) Vital Signs Temp Pulse Resp BP Pulse Ox O2 Del Method 06/04/24 15:31 36.7 C 69 17 133/67 98 Room Air PG Care Time/CCT Total # of Minutes Spent Total Time Spent with Patient: Total time spent is greater than 50% in coordination of care (as documented) at patient's floor/unit and/or counseling patient: Coding Level of Care Code 08447 SUB INP/OBS CARE 3/50MIN Diagnoses Hyponatremia E87.1 Ascites R18.8 History of atrial fibrillation Z86.79 Bladder tumor D49.4
[2024-06-05 06:24] LABS: Hematocrit (blood only) 31.6 % (42.0-52.0); Hemoglobin 11.3 g/dl (14.0-18.0); Mean Corpuscular Hemoglobin 32.2 pg (25.0-34.0); Mean Corpuscular Hgb Conc 35.8 g/dL (32.0-36.0); Platelet Count 286 K/uL (130-400); RDW Coefficient of Variation 11.9 % (11.5-14.5); RDW Standard Deviation 39.2 fL (36.4-46.3); Red Blood Count 3.51 M/uL (4.70-6.10); White Blood Count 7.68 K/ul (4.8-10.8)
[2024-06-05 06:55] LABS: Albumin Level 3.4 gm/dl (3.4-5.0); BUN Creatinine Ratio 24.7 (10-20); Calcium 8.7 mg/dl (8.6-10.3); Creatinine Clr Calc Pharmacy 55.8 ml/min; Phosphorus 3.8 mg/dl (2.5-4.9); Potassium 4.3 mmol/L (3.5-5.1)
[2024-06-05] MEDS: SODIUM CHLORIDE 3 % 150 ML IV ONE (08:13)
[2024-06-05] MEDS: STAT IV/IM STA (09:33)
--- NOTE | 2024-06-05 09:52 | Discharge Summary ---
Discharge Summary Date of Service June 05, 2024 Principal Dx & Hospital Course #1 = Principal Diagnosis (1) Hyponatremia: (2) Ascites: (3) History of atrial fibrillation: (4) Bladder tumor: Plan 83 yo M with PMHx of HTN, HLD, AFib on apixaban, recent diagnosis of bladder tumor s/p transurethral resection of bladder tumor (05/07/24) presented to [facility] as direct admit from [facility] for management of hyponatremia. He in itially presented for the evaluation of weakness, shakiness, and confusion, along with nausea / vomiting. Per [facility] ER notes, his initial sodium was 109 (05/29/24). He was given saline, hypertonic saline, and vancomycin. He is on bactrim as outpatient. His initial sodium trended 109 > 115 > 112 > 110. #Severe symptomatic hyponatremia #Acute metabolic encephalopathy due to hyponatremia present on admission, resolved - suspect SIADH [facility] exact cause of this is unknown. - pt not volume overloaded (though pt did have some mild ascites on CT abd), TSH: 2.59 - pt has received saline / hypertonic saline (OSH), DDAVP / D5 (here due to over correction) - currently on 1500ml fluid restriction and required NaCl 2g PO BID, and furosemide 20mg po daily - reviewed recs in nephrology note - symptoms resolved - sodium showed improvement to above 130, patient will followup with Dr. Noel as an outpatient. At discharge will continue fluid restriction of 1500 ml per day, 1 gr of sodium BID, with repeat sodium levels next week. #Recent TURBT - path (05/07/24): polypoid cystitis, acutely inflamed cystitis glandularis, neg for malignancy - pt was noted to have MRSA in his urine 05/24/24 and was started on Bactrim, which he started taking on 05/25/24 and stopped on 05/28/24. When he went to ER the following day, he was placed on Vancomycin, essentially completing 5 day course. Will hold further antibiotics (urology made aware) - murphy was initially removed by urology on 05/28/24, but was replaced on 05/29/24 in the ED at OSH, removed on 06/01/24 #Generalized weakness - improving, now walking frequently with walker - due to hyponatremia - PT / OT recs return home #Ascites - LFTs normal - requested records from OSH - pt is not having any abdominal discomfort, repeat imaging in about 1 - 2 week as outpatient #HTN #AFib - rate controlled - cont apixaban and metoprolol #HLD - atorvastatin Pulmonary nodule - noted on CT chest from [facility] - follow up CT in 6 months (11/2024) Admission HPI Per Admitting Provider patient is a very pleasant 83-year-old male who presented to [facility] (close to home) yesterday feeling weak and shaky, acting a bit confused according to his family and having some nausea and vomitingper the ER notes he apparently had chest discomfort starting the night before describing as a heartburn intermittent has not had in the past also reports body shaking vomiting once during the night as well as some left hip and groin pain and was currently being treated for MRSA in his urine. He had no fever. Here he notes that he is feeling much better, the shakiness is gone, his mental status is much more clear although his family does note that he still a little bit easily confused. He absolutely denies any dysuria or urinary symptoms whatsoeverhe had a Murphy for quite a while and it was removed and he was voiding wellright now he has a Murphy back in and is anxious to have it removed again. No fevers chills or sweats. The nausea and vomiting seems to have resolved. He notes that up until basically Monday night or morning he was feeling okay. He had a transurethral resection of the bladder tumor done here on 05/07 and had had some issues with hematuria and urinary retention for a while thereafterwas following actively with urologynotes that he was in the ER probably 23 times over the week prior due to urinary retention issues but these had resolved and his Murphy was removed just a few days ago. Other than the nausea vomiting and poor p.o. intake over about 36 hours prior to admission, maybe not even, he denied any change in his p.o. intake/etc. He did note just being started on a few new medicationsmost notably alfuozin which he had started about a day before symptoms started. He was initially started on normal saline at [facility], they followed his sodium levels, were waiting for an ICU bed, and transferred him here. On review of records there his initial vitals on arrival were temp of 36 7 heart rate 66 respiratory rate 18 blood pressure 158/53 pulse ox 95% there he carried a diagnosis of hyponatremia and urinary tract infection, he was given saline and Bactrim, as well as hypertonic saline and vancomycin his initial labs showed a sodium of 109 and a sodium this morning of 115on arrival his sodium is 112 in between at 1:30 in the morning his sodium was 110 he had a high-sensitivity troponin of 15 (with a reference range of less than 79 and a follow-up of 16 a lactate of 1.0, TSH of 2 point2.590, CBC with a white count of 4.71, hemoglobin 10.0, platelets 220. Urinalysis was yellow cloudy trace ketones specific gravity 1.017 large amount of blood protein of 30 mg per deciliter nitrate negative large amount of leukocyte esterase urine sodium of 98 CT chest was done showing mild subsegmental atelectasis in both lower lobes, right middle lobe and lingula, 3 mm right middle lobe nodule, no pleural effusion or pneumothorax, no sign of pulmonary fibrosis or other diffuse interstitial process, no mediastinal air or axillary adenopathy, no endobronchial lesion, thoracic aorta unremarkable with no signs of aneurysm or dissection no pericardial effusion, old healed right rib fractures no focal osseous lesion; radiology recommended 6-month CT to follow-up on the pulmonary nodule. CT abdomen pelvis showed no hydronephrosis or perinephric stranding and no renal mass, small hiatal hernia no sign of bowel obstruction no free air minimal amount of ascites, no bladder mass lesionwith impression of new small amount of ascites some fluid extending into a small right inguinal hernia, moderate size left inguinal hernia containing only fat, unchanged, diverticulosis without diverticulitis, small epigastric hernia containing only fat increase in size, and constipation. EKG was sinus rhythm with some baseline artifact but no overt ischemic changes Discharge Exam Constitutional WD/WN, vitals as above Neck trachea midline, no thyromegaly Respiratory normal respiratory effort, lungs clear to auscultation Cardiovascular RRR, no murmur, no edema Gastrointestinal (Abdomen) normal bowel sounds, soft, nontender, no hepatosplenomegaly Neurologic PERRL, EOMI, accommodation nl, no face palsy, no dysarthria Discharge Plan Discharge Items Patient Disposition: Home - Home Health Services Reason For Visit: HYPONATREMIA Discharge Diagnosis: hyponatremia Activity: Resume your previous activity Non-emergency contact: Primary Care Provider Call non-emergency contact if: you have any medication questions Follow-up/Referrals: Yolanda Pope, [Primary Care Provider] - 06/06/24 9:00 am (primary care follow up scheduled 06/06/24 at 9:00 with Yolanda Pope) Diet: Regular Fluids: 1500ml (6 cups) Ambulatory Orders: Basic Metabolic Panel (Routine) Timeframe: [id number] Location: Determined by Patient Ordered By: Sammy Whitehead Attending Provider Instructions: Continue soidum salt tablets 1 gram twice daily. You will continue on a fluid restrction of 1.5 liters a day. This will be about 17 ounces 3 times a day or a little less than a pint per meal if you have 3 meals a day. Will recommend your PCP to check blood work early next week. Recommend followup with PCP in 1 week[address] Follow up with Dr. Noel in the [place] office within the next few weeks. Pending Studies at Discharge: No Stand-Alone Forms: [facility] Sm[facility] Cess[facility] Medications and DC Order Prescriptions: New sodium chloride 1,000 mg Tablet,Soluble 1,000 mg PO BID17 Qty: 60 0RF Continued metoprolol tartrate [Lopressor] 50 mg tablet 50 mg PO QAM atorvastatin 10 mg tablet 5 mg PO HS Eliquis 5 mg tablet 5 mg PO BID Hold Instructions: Resume on 05/09/24. multivitamin Tablet 1 tab PO DAILY Discharge Orders: Discharge Order (Routine); Ordered 06/05/24 Ordered By: Sammy Lord Admission Data Admit Date/Time: 05/31/24 11:55 Attending Provider: Sammy Lord Admit Provider: Romain Paulson Primary Care Provider: Yolanda Pope Other Providers: Leeanna Noel Other Interventions: Discharge Summary Assessment (RN) Last Done: 06/05/24 12:25 Hospital Stay Data Consultations 06/01/24 10:50 Consult Nephrology Routine Pending Results Patient Have Any Pending Studies at Discharge: No Discharge Instructions Given to Patient (Per Discharging Provider) Continue soidum salt tablets 1 gram twice daily. You will continue on a fluid restrction of 1.5 liters a day. This will be about 17 ounces 3 times a day or a little less than a pint per meal if you have 3 meals a day. Will recommend your PCP to check blood work early next week. Recommend followup with PCP in 1 week. Follow up with Dr. Noel in the [place] office within the next few weeks. Total Time Total Time Spent Total Time Spent (In Minutes): 32 Coding Level of Care Code 72805 INP/OBS DISCH >30 MIN Diagnoses Hyponatremia E87.1 Ascites R18.8 History of atrial fibrillation Z86.79 Bladder tumor D49.4
--- NOTE | 2024-06-05 10:10 | Nephrology Progress Note ---
Date of Service June 05, 2024 Assessment & Plan (1) Hyponatremia: Plan: Sodium improving acceptably. Clinical presentation suggestive of hypotonic hypovolemic vs SIADH. Maintain 1.5 L daily fluid limit. Continue oral NaCl 1 gram BID. Hold diuretics. Remains slightly orthostatic when standing. Check labs within 1 week of discharge. Follow up with Dr. Noel in the [place] clinic within 3 weeks. Repeat serum sodium scheduled for this afternoon. Document strict I/O's. (2) HTN (hypertension): Plan: BP acceptable. No additional therapy required. Noted history of 'white coat hypertension.' Continues to have orthostatic drop in BP while standing. Avoid additional diuretics at this time. Close outpatient follow up encouraged. Admission and Anticipated Discharge Date Admission Date: May 31, 2024 Subjective No acute events overnight. Miko feels reasonably well overall. He was seen and evaluated with his at the bedside. Mild orthostatic lightheadedness persists. I discussed the plan of care with Dr. Lord. Review of Systems Review of Systems: All systems reviewed & are unremarkable except as noted in HPI & below Physical Exam Constitutional: + thin; no acute distress and not ill ap pearing Eyes: + anicteric sclerae ENMT: Mouth: oral mucous membranes not dry Neck: normal visual inspection and trachea midline Respiratory: normal respiratory effort; no labored breathing Cardiovascular: Rate/Rhythm: regular rate and regular rhythm Heart Sounds: normal S1 and normal S2 Extremities: no edema Musculoskeletal: Extremities: no cyanosis Skin: normal turgor; no jaundice Neurologic: Motor/Sensory: no tremor and no asterixis Psychiatric: Orientation: alert and oriented x 3 Results & Data Vital Signs (Past 12 Hours) Vital Signs Temp Pulse Resp BP Pulse Ox O2 Del Method 06/05/24 08:00 36.4 C L 68 17 167/67 H 97 Room Air 06/05/24 00:35 36.6 C 78 18 138/84 94 Room Air Laboratory Results Laboratory Results - last 24 hr 06/04/24 06/04/24 06/05/24 15:07 22:51 05:46 WBC 7.68 RBC 3.51 L Hgb 11.3 L Hct 31.6 L MCV 90.0 MCH 32.2 MCHC 35.8 RDW Std Deviation 39.2 RDW Coeff of [place] 11.9 Plt Count 286 MPV 8.0 L Sodium 128 L 130 L 133 L Potassium 4.3 Chloride 99 Carbon Dioxide 31 Anion Gap 3 BUN 23 Creatinine 0.93 Est Cr Clr Drug Dosing 55.8 eGFR 81.47 BUN/Creatinine Ratio 24.7 H Glucose 90 Calcium 8.7 Phosphorus 3.8 Albumin 3.4 PG Care Time/CCT Total # of Minutes Spent Total Time Spent with Patient: Total time spent is greater than 50% in coordination of care (as documented) at patient's floor/unit and/or counseling patient: Coding Level of Care Code 55390 SUB INP/OBS CARE 3/50MIN Diagnoses Hyponatremia E87.1 HTN (hypertension) I10
[2024-06-05 15:26] VITALS: BP 133/66; PULSE 64; RESP 17; TEMP 97.7; O2SAT 98
== END 2024-06-05 17:42 | disposition home health service (06) | DRG 643 ==
LOC: SUATTDRO 05-31 11:55 → 1E 05-31 11:55 → 2E 05-31 15:54
DX: E22.2 Syndrome of inappropriate secretion of antidiuretic hormone; Z96.21 Cochlear implant status; I48.91 Unspecified atrial fibrillation; G93.41 Metabolic encephalopathy; Z86.14 Personal history of Methicillin resistant Staphylococcus aureus infection; Z79.01 Long term (current) use of anticoagulants; J98.11 Atelectasis; E78.5 Hyperlipidemia, unspecified; R18.8 Other ascites